=== PATIENT | female | born 1970 | race Caucasian/White ===

== ENCOUNTER 2020-10-29 02:03 | Emergency (ER) | payer SELFPAY ==
[~2020-10-29] VITALS: Ht 182.9 cm; Wt 98.0 kg
[2020-10-29 02:15] VITALS: BP 168/70
[2020-10-29] MEDS ORDERED: IBUPROFEN 600 MG TABLET ONE (02:59)
[2020-10-29] MEDS ORDERED: ACETAMINOPHEN 500 MG TABLET ONE (02:59)
[2020-10-29] MEDS ORDERED: PLEASE ENTER ALLERGIES MC SCH (03:00)
[2020-10-29] MEDS ORDERED: ACETAMINOPHEN 500 MG TABLET PO ONE (03:00)
[2020-10-29] MEDS ORDERED: IBUPROFEN 600 MG TABLET PO ONE (03:00)
--- NOTE | 2020-10-29 03:07 | NUR ---
medicated per mar pt in nad at this time
== END 2020-10-29 04:17 | disposition home or self-care (01) ==
LOC: ED 03:37
DX: J06.9 Acute upper respiratory infection, unspecified (principal); Z20.822 Contact with and (suspected) exposure to COVID-19; B34.9 Viral infection, unspecified; R07.89 Other chest pain; R05 Cough; R50.9 Fever, unspecified; M79.10 Myalgia, unspecified site; F17.210 Nicotine dependence, cigarettes, uncomplicated
CPT/HCPCS: 71045; 87635; 99284; 99406